=== PATIENT | male | born 1970 | race Caucasian/White ===

== ENCOUNTER 2018-02-08 19:20 | Emergency (ER) | payer SELFPAY ==
[~2018-02-08] VITALS: Ht 182.9 cm; Wt 102.0 kg
[2018-02-08 21:04] VITALS: BP 108/74
== END 2018-02-08 22:50 | disposition left against medical advice (07) ==
LOC: ER 21:34
DX: Z53.21 Procedure and treatment not carried out due to patient leaving prior to being seen by health care provider (principal)